=== PATIENT | female | born 1960 | race Caucasian/White ===

== ENCOUNTER 2017-08-12 16:33 | Emergency (ER) | payer BC ==
[2017-08-12] MEDS ORDERED: Ketorolac 60 MG/2 ML SDV IM ONE (17:00)
--- NOTE | 2017-08-12 17:00 | EDM.PDOC ---
ED HPI GENERAL MEDICAL PROBLEM - General Chief Complaint: Back Pain or Injury Stated Complaint: BACK PAIN Time Seen by Provider: 08/12/17 16:56 Source of Information: Reports: Patient History Limitations: Reports: No Limitations - History of Present Illness INITIAL COMMENTS - FREE TEXT/NARRATIVE: HISTORY AND PHYSICAL: []57-year-old female presenting with right-sided back pain History of Present Illness: []About 9:00 this morning patient was trying to place her dog and a dog harness and felt pain to the right side of her back above her "kidney" She's been having pain to this area since has difficulty getting up and down Review of Systems: As per history of present illness and below otherwise all systems reviewed and negative. Past medical history: As per history of present illness and as reviewed below otherwise noncontributory. Surgical history: As per history of present illness and as reviewed below otherwise noncontributory. Social history: No reported history of drug or alcohol abuse. Family history: As per history of present illness and as reviewed below otherwise noncontributory. Physical exam: Alert and oriented female answering questions appropriately in full sentences she does have tears rolling down her face when she tries to move to sitting on the edge of the chair in the exam room. She is able to extend and raise her right leg with difficulty and increased pain. She is able to extend and raise her left leg without any increase in pain. She has been able to void no difficulty with bowel habits. HEENT: Atraumatic, normocehpalic, pupils reactive, negative for conjunctival pallor or scleral icterus, mucous membranes moist, throat clear, neck supple, nontender, trachea midline. Lungs: Clear to auscultation, breath sounds equal bilaterally, chest non tender. Heart: S1S2, regular, negative for clicks, rubs, or JVD. Abdomen: Soft, nondistended, nontender. Negative for masses or hepatossplenmegaly. Negative for costovertebral tenderness. Tenderness noted with corded muscle mid flank area right side. Tender upon palpation Pelvis: Stable nontender. Genitourinary: Deferred. Rectal: Deferred Extremities: Atraumatic, negative for cords or calf pain. Neurovascular unremarkable. Neuro: Awake, alert, oriented. Cranial nerves II through XII unremarkable. Cerebellum unremarkable. Motor and sensory unremarkable throughout. Exam nonfocal. Discussed with patient that she is improved with this medication was given she is able to turn and stand up without much difficulty she verbalized understanding of her discharge instructions Diagnostics: [] Therapeutics: [Toradol 60 IM Norflex] Impression: []Muscle strain Plan: []Discharged to home Flexeril 10 mg 3 times a day when necessary muscle spasm #10 tablets no refill Diclofenac 75 mg twice a day when necessary pain #10 no refill Definitive disposition and diagnosis as appropriate pending reevaluation and review of above. Onset: Today, Sudden Duration: Hour(s): Location: Reports: Back Quality: Reports: Stabbing, Throbbing Severity: Moderate Improves with: Reports: None Worsens with: Reports: None back Pain Score (Numeric/FACES): 10 - Related Data Allergies Allergy/AdvReac Type Severity Reaction Status Date / Time egg Allergy Itching Verified 08/12/17 16:53 levothyroxine sodium Allergy Itching Verified 08/12/17 16:53 [From Synthroid] red dye Allergy Itching Verified 08/12/17 16:53 Home Meds: Home Meds Cyclobenzaprine [Flexeril] 10 mg PO TID PRN #21 tab 08/12/17 [Rx] Diclofenac Sodium [IJD: Diclofenac Sodium] 75 mg PO .TWICE DAILY W MEALS #20 tab.ec 08/12/17 [Rx] Levothyroxine Sodium [Levoxyl] 125 mcg PO DAILY 08/12/17 [History] Nortriptyline 10 mg PO DAILY 08/12/17 [History] atorvaSTATin [Lipitor] 10 mg PO DAILY 08/12/17 [History] metFORMIN [Glucophage] 1,000 mg PO BIDMEALS 08/12/17 [History] ED ROS GENERAL - Review of Systems Review Of Systems: ROS reveals no pertinent complaints other than HPI. ED EXAM,LOWER BACK PAIN/INJURY - Physical Exam Exam: See Below (See dictation) Course - Vital Signs Last Recorded V/S: Last Vital Signs Temp 36.6 C 08/12/17 16:55 Pulse 120 H 08/12/17 16:55 Resp 18 08/12/17 16:55 BP 162/102 H 08/12/17 16:55 Pulse Ox 95 08/12/17 16:55 - Orders/Labs/Meds Orders: Active Orders 24 hr Category Date Time Status Orphenadrine [Norflex] Med 08/12/17 17:00 Active 60 mg IM Q12H Medication Orders Orphenadrine Citrate (Norflex) 60 mg IM Q12H YELENA Last Admin: 08/12/17 17:19 Dose: 60 mg Meds: Medications Generic Name Dose Route Start Last Admin Trade Name Ed PRN Reason Stop Dose Admin Orphenadrine Citrate 60 mg 08/12/17 17:00 08/12/17 17:19 Norflex IM 60 mg Q12H YELENA Administration Discontinued Medications Generic Name Dose Route Start Last Admin Trade Name Freq PRN Reason Stop Dose Admin Ketorolac Tromethamine 60 mg 08/12/17 17:00 08/12/17 17:20 Toradol IM 08/12/17 17:01 60 mg ONETIME ONE Administration Departure - Departure Time of Disposition: 18:05 Disposition: Home, Self-Care 01 Condition: Good Clinical Impression: Muscle strain of left upper back - Discharge Information Prescriptions: Cyclobenzaprine [Flexeril] 10 mg PO TID PRN #21 tab PRN Reason: Muscle Spasm Diclofenac Sodium [IJD: Diclofenac Sodium] 75 mg PO .TWICE DAILY W MEALS #20 tab.ec Instructions: Muscle Strain, [id number] Referrals: Wendy Triana MD [Primary Care Provider] - Forms: ED Department Discharge - My Orders Last 24 Hours: My Active Orders 08/12/17 17:00 Orphenadrine [Norflex] 60 mg IM Q12H - Assessment/Plan Last 24 Hours: My Active Orders 08/12/17 17:00 Orphenadrine [Norflex] 60 mg IM Q12H
== END 2017-08-12 18:19 | disposition home or self-care (01) ==
LOC: MW.ED 16:33
DX: S29.012A Strain of muscle and tendon of back wall of thorax, initial encounter (principal); Z79.899 Other long term (current) drug therapy; Z88.8 Allergy status to other drugs, medicaments and biological substances; Z91.018 Allergy to other foods; Z91.012 Allergy to eggs; X58.XXXA Exposure to other specified factors, initial encounter
CPT/HCPCS: 96372; 99283; J1885; J2360; 99284